=== PATIENT | female | born 1970 | race Caucasian/White ===

== ENCOUNTER 2018-07-23 09:00 | Day surgery (SDC) | payer MEDICAID, SELFPAY ==
[2018-07-23] VITALS (13 sets, daily range): BP systolic 91–141; BP diastolic 63–99; PULSE 66–98; RESP 16–18; TEMP 36.1–36.7; O2SAT 93–100; BMI 29.7
--- NOTE | 2018-07-23 10:45 | BON_PTH ---
PATIENT: RHONDA MEHTA LOC: [facility] U#:[id number] AGE/SX: 47/F ROOM: RE07/23/[address]: Dr. Elaine Sheth DPM : 1970 BED: DIS: 07/23/2018 SPEC #: [id number] RECD: 07/23/18 16:44 STATUS: ALIS REMaurice #: [id number] MANFRED: 07/23/18 10:[address]: Elaine Sheth DEPT: SURGICAL PATHOLOGY RECD BY: Konstantin Bush ENTERED: 07/24/18 07:25 SP TYPE: Bone OTHR DR: Dr. Gisell Paul, Tissues: Bone of ankle, NOS Procedures: Decalcification bone/plaque Surgery Specimen Level IV HEADER OPERATION: Arthroscopy ankle, synovectomy, subchondroplasty, exostectomy PRE-OP DIAGNOSIS: Pain left ankle and joints TISSUE SUBMITTED: Medial malleolus exostosis left ankle MICROSCOPIC DIAGNOSIS Left ankle medial malleolus, exostosis: Fragments of osseocartilaginous tissue with reactive change. See comment. ADRIANA:joslyn 07/29/18 COMMENT The findings are consistent with exostosis. Clinical correlation is suggested. MICROSCOPIC DESCRIPTION Slides are reviewed. GROSS DESCRIPTION Received in fixative is one container labeled with the patient's name and designated left ankle medial malleolus exostosis. The specimen consists of four variable sized pieces of berry bone that in aggregate measure 1 x 1 x 0.2 cm. The entire specimen is submitted in one cassette after decalcification. / SJ:joslyn 07/24/18 TC:5 CPT: 68070, 75047
--- NOTE | 2018-07-23 10:45 | RAD_ITS ---
HISTORY: CHONDROPLASTY EXAM/TECHNIQUE: XR Ankle 2 Views: COMPARISON: None. FINDINGS: # of images incl. paperwork: 5 4 fluoroscopic images of the left ankle with an introducer directed toward the ankle joint compatible with chondroplasty. RAD/Ankle 2 Views IMPRESSION: Fluoroscopic images of chondroplasty of the left ankle. No apparent complication. at 2132 Reported and signed by: Kemar Ratliff MD Electronically Signed: Kemar Ratliff, at 21:31 EST Tel , Service support ,
[2018-07-23] MEDS: Cefazolin 2 GM in 0.9% Normal Saline 100 ML IV (13:42)
--- NOTE | 2018-07-23 16:13 | RAD_ITS ---
STUDY: X-RAY - LEFT ANKLE REASON FOR EXAM: Female, 47 years old. Postop. Subchondral plasty. Medial malleolar exostectomy. TECHNIQUE: 3 view(s) of the ankle. COMPARISON: Intraoperative left ankle, July 23, 2017. FINDINGS: There is a semiradiopaque splint about the ankle which limits visualization. Normal visualized distal tibia and fibula. Normal medial and lateral malleoli. Normal tibiotalar articulation and ankle mortise. Normal visualized talus. There is a plantar spur along the underside of the calcaneus. The visualized subtalar, talonavicular, calcaneocuboid and tarsal articulations are normal. There is mild soft tissue swelling. RAD/Ankle min 3 Views IMPRESSION: No evidence of acute fracture or dislocation. There is associated soft tissue swelling. Electronically Signed: Sukh Oquendo DO at 17:54 EST Tel [phone], Service support ,
--- NOTE | 2018-07-23 16:13 | DCINST_ITS ---
Discharge Activity: May Not Drive, May not drive while taking narcotic pain medications., May Not Shower, Use Walker, Use Crutches Ice area for (Minutes): 20 - 20 minutes of each hour behind left knee while awake Weight Bearing Status: No weight bearing Keep extremity elevated above heart level: Operative Extremity Call your doctor if your incision/area has: Sudden Increased Bleeding Call your doctor if you observe: Fever of 101 or Higher, Shortness of breath, Dizziness, Chest pain, Increased palpitations (irregular heartbeat), Calf discomfort Cleanse incision/area with: Keep Dressing Clean & Dry Allergies/Adverse Reactions: Allergies bee venom protein (honey bee) Allergy (Verified 07/17/18 09:09) Anaphylaxis latex Allergy (Verified 07/17/18 09:09) Rash Pork/Porcine Containing Products Allergy (Verified 07/17/18 09:09) Food Allergy Medications to take at Discharge Topiramate [Topamax] 100 mg PO DAILY 10/18/13 Duloxetine Hcl [Cymbalta] 60 mg PO DAILY 12/25/13 Milnacipran HCl [Savella] 50 mg PO DAILY 07/17/18 Pseudoephedrine HCl [Sudafed 24-Hour] 240 mg PO DAILY 07/17/18 Oxycodone [Oxyir] 5 mg PO Q6H PRN PRN 7 Days #30 tab 07/23/18 The following prescriptions were given: Oxycodone [Oxyir] 5 mg PO Q6H PRN PRN 7 Days #30 tab PRN Reason: Pain Primary Care Physician: Gisell Paul DO [Primary Care Provider] - Test Results: Test results from this visit will be discussed in further detail at your follow- up appointment, if applicable. Please Follow Up With: Elaine Sheth DPM - Please follow up at your previously scheduled post operative appointment next week. Proposed Discharge Date: 07/23/18
--- NOTE | 2018-07-23 16:58 | PCM.IMDPSTOP ---
Immediate Post-Op Note Date of Procedure: 07/23/18 Primary Surgeon/Physician: Elaine Sheth DPM marble coper: Samuel Smith Pre-Operative Diagnosis: L talus OCD w/ cyst, L ankle synovitis, L medial malleolus exostosis Post-Operative Diagnosis: same Surgery/Procedure Performed:: L ankle arthrocopy w/ synovectomy converted to arthrotomy, L medial mallelous exostectomy, L talus OCD/cyst repair Description of Surgical Findings:: see dictation Estimated Blood Loss: minimal Specimen's removed: L medial malleolus exostosis Type of Anesthesia:: General/Supplemental - Admit VTE Documentation VTE Present on Admission: No VTE Mechan Device Prophylaxis: SCD's, Knee High ISABELL Hose VTE Pharm Prophylaxis ordered?: Yes
--- NOTE | 2018-07-23 17:06 | OP.PN_ITS ---
Immediate Post-Op Note Date of Procedure: 07/23/18 Primary Surgeon/Physician: Elaine Sheth DPM netbackup engineer: Samuel Smith Pre-Operative Diagnosis: L talus OCD w/ cyst, L ankle synovitis, L medial malleolus exostosis Post-Operative Diagnosis: same Surgery/Procedure Performed:: L ankle arthrocopy w/ synovectomy converted to arthrotomy, L medial mallelous exostectomy, L talus OCD/cyst repair Description of Surgical Findings:: see dictation Estimated Blood Loss: minimal Specimen's removed: L medial malleolus exostosis Type of Anesthesia:: General/Supplemental - Admit VTE Documentation VTE Present on Admission: No VTE Mechan Device Prophylaxis: SCD's, Knee High ISABELL Hose VTE Pharm Prophylaxis ordered?: Yes
[2018-07-23] MEDS: Ketorolac 30 MG/ML Syringe IV (17:58)
--- NOTE | 2018-07-25 21:46 | OP.PCM_ITS ---
Report of Operation Date of Procedure: 07/23/18 Pre-Operative Diagnosis: L talus OCD w/ cyst, L ankle synovitis, L medial malleolus exostosis Post-Operative Diagnosis: same Surgery/Procedure Performed:: L ankle arthrocopy w/ synovectomy converted to arthrotomy, L medial mallelous exostectomy, L talus OCD/cyst repair Description of Surgical Findings:: see dictation professor of food biochemistry: Samuel Smith Type of Anesthesia:: General/Supplemental Specimen's removed: L medial malleolus exostosis Estimated Blood Loss (mL): minimal Description of Procedure: Indications: Pt is a 47 yo F known to me who has failed conservative care for L ankle pain after sustaining two significant ankle sprains within the last year. As patient had a previous MRI in the fall and the pain has continued and worsened, we obtained an MRI prior to surgery for planning. Based on preoperative review of this patient?s left ankle MRI, the location of the bone marrow lesion, consistent with an insufficiency or stress fracture, in the talus was identified. Preoperative surgical planning allowed for determination of the optimal methods for accessing the lesion. All risks, complications, and alternatives were discussed with the patient, and the patient signed an informed consent. No guarantees were given. Procedure: On 07/23/2018, Kenisha Jones was visually and verbally identified in the preoperative holding area. The consent form was again reviewed with the patient, as were all risks, complications, and alternatives and the patient wished to proceed with the proposed surgery. The left ankle was marked as the correct operative extremity. The patient was brought to the operating room and placed on the operating room table in the normal supine position. After induction by anesthesia, a surgical time out was performed and all present were in agreement. a pneumatic thigh tourniquet was then placed. A thigh westbrook was placed with care taken to offload the CPN. At this time the left lower extremity was prepped and draped in the usual sterile fashion. after exsanguination with an esmarch the tourniquet was inflated to 300 mmHg. At this time attention was directed to the medial talus. Intraoperatively, image fluoroscopy combined with bone targeting instruments from [employer] were used to guide surgical instruments into the proximity of the subchondral talar fracture. The [employer] Accuport injection cannula was drilled in the subchondral bone. Standard repair methodology was used to treat the subchondral bone defect in the talus. Image fluoroscopy was utilized to confirm accurate insertion of the Accuport injection cannula into the subchondral fracture. After insertion, fracture stabilization was performed by injecting (3 cc) of [employer] Bone Substitute Accufill material into the talus. Image fluoroscopy was used to monitor the injection process and insure injection of the bone substitute into the subchondral bone so that the biomaterial flowed into the fracture site to stabilize the fracture and facilitate fracture/cyst repair. The ankle was then distracted using Arthrex ankle arthroscopy equipment. The incision was bluntly carried deep through the subcutaneous tissues with careful attention paid to all bleeders, which were clamped and tied or bovied as necessary. All vital neurovascular structures were retracted. Attention was then turned to the medial ankle. An 18-gauge spinal needle was inserted at the level of the medial arthroscopy gutter just medial to the tibialis anterior tendon. A #15 blade was used to incise at this level after the ankle joint was inflated with 15 20 mL of normal sterile saline. The blunt trocar was then used to insert through the ankle joint capsule medially. The arthroscopic camera was inserted through this cannula. The lateral portal site was identified lateral to the intermediate dorsal cutaneous nerve. A #15 blade was used to make incision and the ankle joint capsule was perforated with the mosquito hemostats. The shaver was inserted through the lateral portal. Inspection of the ankle revealed no penetration of the Accufill into the ankle joint. The joint was significantly narrowed, the cartilage appeared thinned and pitted extensively and throughout on both the tibial and talar surfaces. No floating OCD was noted, anterolateral and medial soft tissue impingement was noted. The ankle joint was further distracted as it was significantly narrowed impeding inspection. There is mild inflammatory tissue in the posterior medial aspect of the synovial capsule. The syndesmosis showed a inflamed meniscoid lesion. Debridement began in the anterolateral gutter with the arthroscopic shaver in which we debrided the synovial hyperplasia The shaver was then removed from the lateral portal and the camera was inserted in the lateral portal. This allowed us to visualize the medial gutter which showed moderate synovial hyperplasia with injected synovium. Given the limited motion of both the camera and the shaver due to the joint space, I felt determined that a open ankle arthrotomy would be needed to full inspect the ankle joint. The arthroscopic instruments were removed. A curvilinear incision was made using a #15 blade along the medial malleolus incorporating the portal incision. The incision was bluntly carried deep through the subcutaneous tissues with careful attention paid to all bleeders, which were clamped and tied or bovied as necessary. All vital neurovascular structures were retracted. The ankle joint capsule was incised and the ankle joint was inspected. the medial gutter was noted to be significantly narrowed, with no floating ocd noted. Inflamed soft tissue was removed with ronguers. I did not microfracture the talus. I then extended my incision proximally and through direct palpation located the prominent kimberly exotosis on the medial malleolus. This was exposed and using an osteotome and mallet it was resected. The kimberly exotosis was sent to the pathology. A rasp was used to smooth the edges and the bone and ankle joint were flushed with copious amounts of the normal sterile saline. Closure was then initiated. The ankle capsule and deep tissues were closed with 2.0vicryl and the subcutaneous tissues were closed with 3.0 vicryl. All skin incision, including the lateral portal were closed with 3.0 prolene. 1% lidocaine plain, 30 cc, was injected as part of both an ankle block and intra-articularly. Adaptic and dry. sterile dressing were applied, a multi layercompressive dressing was then applied to aid in edema and pain reduction and well as increase stability. A well padded posterior splint was the applied. Total tourniquet time was 92 minutes with immediate capillary refill noted to all digits upon deflation. Intra operative fluoroscopy was utilized throughout the case to aid in visualization and confirmation of fracture fixations. Interpretation of the images was vital to my decision making process. The patient tolerated the procedure and anesthesia well. The patient was then transported to the postanesthesia care unit by a member of the anesthesia team and myself with all vital signs stable and neurovascular status of the left lower extremity equal to pre-operative levels. At the end of the case all sponge, needle and instrument counts were found to be correct. Grafts/Implants Used: [employer] Accufill - Complications none - Admit VTE Documentation VTE Present on Admission: No VTE Mechan Device Prophylaxis: SCD's, Knee High ISABELL Hose VTE Pharm Prophylaxis ordered?: Yes
== END 2018-07-23 19:29 | disposition home or self-care (01) ==
LOC: SDC 09:01 → AC 09:03
PROVIDERS: Referring Provider Podiatrist Foot & Ankle Surgery; Visit Provider Podiatrist Foot & Ankle Surgery
PROC: (CPT 28100; principal; 2018-07-23 10:30)
DX: M85.672 Other cyst of bone, left ankle and foot (principal); M93.272 Osteochondritis dissecans, left ankle and joints of left foot; M65.872 Other synovitis and tenosynovitis, left ankle and foot; M25.572 Pain in left ankle and joints of left foot; R60.0 Localized edema; I87.2 Venous insufficiency (chronic) (peripheral); I73.9 Peripheral vascular disease, unspecified; M89.362 Hypertrophy of bone, left tibia; M79.7 Fibromyalgia; F17.210 Nicotine dependence, cigarettes, uncomplicated
CPT/HCPCS: 28100; 29895; 64450; 73600; 73610; 76000; 88305; 88311; C1713; J7120; J2405

== ENCOUNTER 2018-09-26 17:45 | Emergency (ER) | payer MEDICAID, SELFPAY ==
[2018-07-23 09:21] VITALS: BMI 29.7
[2018-09-26 17:45] VITALS: BP 141/99; PULSE 86; RESP 16; TEMP 36.2; O2SAT 99; BMI 30.7
--- NOTE | 2018-09-26 17:57 | ED.VISSUMM ---
- ER Visit Summary Date of Service: 09/26/18 Chief Complaint: Left leg pain and swelling History of Present Illness: The patient is a 47 F who has pain and swelling of her left leg. On July 23 she had a left ankle reconstruction surgery by Dr. Sheth. She was in a cast that was taken off 3 weeks ago. She is now in a walking boot and is weightbearing as tolerated. For the past 4 days she has pain and swelling of the left leg. She states it has been a little bit red. She was on antibiotics for ruptured eardrums 2 weeks ago. She denies any fevers. Physical Examination: Vital signs reviewed. Left leg exam reveals some swelling from the foot up to the knee on the left side. There is some erythema of the foot and ankle. It is diffusely tender around the foot and ankle area. She does have painful range of motion of the ankle. Neurologic exam normal. Test Results: Duplex ultrasound reveals a small DVT just below the left popliteal area. Emergency Department Course and Treatment: The patient will be given naproxen for pain. I will start her on Eliquis she will need to follow-up with her primary care physician for further testing Treatment Plan: [] Disposition: Discharge Impression: Left leg DVT This note was generated with [employer] dictation software. It may contain incorrect words, spelling, and punctuation that were not noted in review of the chart prior to signing ED Disposition - Plan for ED Patient: Referrals: Gisell Paul DO [Primary Care Provider] -
--- NOTE | 2018-09-26 17:59 | US_ITS ---
STUDY: VENOUS DOPPLER ULTRASOUND - BILATERAL LOWER EXTREMITIES REASON FOR EXAM: Female, 47 years old. TECHNIQUE: Ultrasound evaluation of the deep vein system to include laureano-scale imaging and compression was performed. Laureano-scale imaging and Doppler sonographic evaluation, including duplex spectral analysis and qualitative color flow sonography, was performed. COMPARISON: None. FINDINGS: RIGHT LEG Common Femoral Vein: Normal compression, spontaneity and augmentation. Normal color Doppler. Common Femoral Vein/Greater Saphenous Junction: Normal compression, spontaneity and augmentation. Normal color Doppler. Deep Femoral Vein: Normal compression, spontaneity and augmentation. Normal color Doppler. Femoral Proximal: Normal compression, spontaneity and augmentation. Normal color Doppler. Femoral Middle: Normal compression, spontaneity and augmentation. Normal color Doppler. Femoral Distal: Normal compression, spontaneity and augmentation. Normal color Doppler. Popliteal Vein: Normal compression, spontaneity and augmentation. Normal color Doppler. Posterior Tibial Vein: Normal compression, spontaneity and augmentation. Normal color Doppler. Peroneal Vein: Normal compression, spontaneity and augmentation. Normal color Doppler. LEFT LEG Common Femoral Vein: Normal compression, spontaneity and augmentation. Normal color Doppler. Common Femoral Vein/Greater Saphenous Junction: Normal compression, spontaneity and augmentation. Normal color Doppler. Deep Femoral Vein: Normal compression, spontaneity and augmentation. Normal color Doppler. Femoral Proximal: Normal compression, spontaneity and augmentation. Normal color Doppler. Femoral Middle: Normal compression, spontaneity and augmentation. Normal color Doppler. Femoral Distal: Normal compression, spontaneity and augmentation. Normal color Doppler. Popliteal Vein: Normal compression, spontaneity and augmentation. Normal color Doppler. Posterior Tibial Vein: Abnormal compression, spontaneity and augmentation. Abnormal color Doppler. Peroneal Vein: Normal compression, spontaneity and augmentation. Normal color Doppler. US/Venous Duplex Imag/Cristhian Extrem IMPRESSION: Study is positive for DVT in the posterior tibial vein of the left lower extremity No demonstrated DVT in the right lower extremity Electronically Signed: Lei Kearney MD at 19:16 EDT , Service support ,
[2018-09-26] MEDS: Naproxen 500 MG Tablet PO (19:07)
--- NOTE | 2018-09-26 19:10 | ED.DEP ---
ED Disposition - Plan for ED Patient: Disposition: Home or Assisted Living Instructions: ED DVT Prescriptions: Apixaban [Eliquis] 5 mg PO BID #74 tab Referrals: Gisell Paul DO [Primary Care Provider] -
[2018-09-26 19:24] VITALS: BP 134/96; PULSE 87; RESP 16; O2SAT 99
[2018-09-26] MEDS: APIXABAN 5 MG TABLET 10 MG PO (19:28)
== END 2018-09-26 19:39 | disposition home or self-care (01) ==
PROVIDERS: Emergency Provider Emergency Medicine
DX: I82.432 Acute embolism and thrombosis of left popliteal vein (principal); Z72.0 Tobacco use
CPT/HCPCS: 93970; 99283

== ENCOUNTER 2019-01-04 09:13 | Emergency (ER) | payer MEDICAID, SELFPAY ==
[2019-01-04 09:14] VITALS: BP 135/94; PULSE 111; RESP 20; TEMP 37; O2SAT 99; BMI 29.0
[2019-01-04 09:19] VITALS: TEMP 37
--- NOTE | 2019-01-04 09:32 | VDLE_ITS ---
Reason For Study: Swelling Procedure LEFT Exam performed portable in ED. GSV is normal. A preliminary report was called and/or faxed CFV is compressible, spontaneous, phasic, to ED. competent, and demonstrates normal augmentation. FV is compressible, spontaneous, phasic, competent and demonstrates normal augmentation. POP V is compressible, spontaneous, phasic, competent and demonstrates normal augmentation. T/P Trunk is compressible. PTV is compressible. LT PerV is compressible. Interpretation Summary There is no evidence of left lower extremity deep vein thrombosis. Left greater saphenous vein appears patent and compressible segmentally. Ordering Physician: Susie Chow Referring Physician: Gisell Paul Performed By: Diane Rogers RVT
--- NOTE | 2019-01-04 09:34 | ED.VIS.GEN ---
History of Present Illness Chief Complaint: Other, Pain/Inj Informant: Patient Onset: Days Narrative: Presents to the ED with left foot and ankle pain for the last 2 to 3 days. She reports associated swelling and feels as though the swelling is getting worse. She states I think I have a another blood clot. She states her last DVT was in September of this year. She took Eliquis for several months and her PCP discontinued this. She states this was provoked after having an orthopedic surgery on her left lower extremity after injury. She did fall in October of this year and broke her ankle. She currently denies any chest pain or shortness of breath. She has been taking ibuprofen and Tylenol for the pain. She denies any recent injury or surgical procedures. She states the pain feels like a burning sensation and localizes it more to the dorsal aspect of her left foot. Past Medical History - Allergies and Home Meds Allergies/Adverse Reactions: Allergies bee venom protein (honey bee) Allergy (Verified 01/04/19 09:17) Anaphylaxis latex Allergy (Verified 01/04/19 09:17) Rash Pork/Porcine Containing Products Allergy (Verified 01/04/19 09:17) Food Allergy Primary Care Physician: Gisell Paul DO [Primary Care Provider] - Smoking Status: Current every day smoker Review of Systems General: Denies: Chills, Fever, Sweats Eyes: Denies: Visual changes - bilaterally, Diplopia ENT: Denies: Rhinorrhea, Sore throat Cardiovascular: Denies: Chest pain, Palpitations Respiratory: Denies: Dyspnea, Cough, Dyspnea on exertion Gastrointestinal: Denies: Abdominal pain, Nausea, Vomiting, Diarrhea, Melena, Hematochezia Genitourinary: Denies: Dysuria, Hematuria, Frequency Musculoskeletal: Reports: - - Left foot and ankle pain with swelling. Denies: Back pain, Extremity Pain Skin: Denies: Rash, Wounds Neurological: Denies: Headache, Weakness, Numbness Physical Exam Vital Signs/Narrative: Vital Signs Temp Pulse Resp BP Pulse Ox 01/04/19 09:19 98.6 F 01/04/19 09:14 98.6 F 111 H 20 H 135/94 H 99 General: Well nourished, Well developed, No Acute Distress Head: Normocephalic, Atraumatic Eyes: Perrl, EOMI ENT: Moist mucous membranes, No rhinorrhea Neck: Supple, Nontender Cardiovascular: Regular rate, Regular rhythm, No murmurs Respiratory: No distress, CTA bilaterally, Chest nontender Abdomen: Soft, Nontender, Nondistended, Normal bowel sounds Back: Nontender, Normal Inspection Extremities: Tenderness - Enters to palpation over anterior and posterior aspect of left ankle. No erythema or ecchymosis. No warmth to palpation. No palpable cords., Edema - 1+ pitting edema to left lower extremity., - Skin: Normal color, No rash Neurological: Alert, Oriented x3, Cranial nerves II-XII grossly intact, Normal Strength, Normal Sensation Psychological: Normal affect, Normal Mood Diagnostic/Tx/Re-eval Venous duplex of left lower extremity is negative for acute DVT. - Medical Decision Making Patient presents to the ED with increased left ankle and foot pain and swelling. She is concerned for DVT. She has a history of DVT with her last being in September of this year. She was recently taken off of Eliquis. She denies any chest pain or shortness of breath. She is given IM Toradol here for analgesia. Ultrasound is negative for acute DVT. At this time, I think it is safe for the patient be discharged home. She was placed in an North wrap. She was instructed to ice and elevate her left lower extremity. I did provide her with prescription for Naprosyn for analgesia and she will supplement this with Tylenol. She was educated on signs/symptoms to return to the ED. She is provided discharge instructions. She is agreeable to plan. Disposition: Home stable Impression: Left lower extremity pain and swelling ED Disposition - Plan for ED Patient: Disposition: Home or Assisted Living Diagnosis: Leg swelling, Leg pain Instructions: ED Peripheral Edema, Unilateral Prescriptions: Naproxen [Naprosyn] 500 mg PO BID PRN #20 tab Prescription Printed Referrals: Gisell Paul DO [Primary Care Provider] -
[2019-01-04] MEDS: Ketorolac 30 MG/ML Syringe IM (09:40)
[2019-01-04 11:50] VITALS: RESP 16
== END 2019-01-04 11:52 | disposition home or self-care (01) ==
PROVIDERS: Emergency Provider Physician Assistant
DX: M79.605 Pain in left leg (principal); M79.89 Other specified soft tissue disorders; Z86.718 Personal history of other venous thrombosis and embolism; F17.200 Nicotine dependence, unspecified, uncomplicated; Z91.040 Latex allergy status
CPT/HCPCS: 93971; 99282

== ENCOUNTER → 2022-08-22 | Outpatient (CLI) | payer MEDICAID, SELFPAY ==
--- NOTE | 2022-08-22 10:52 | RAD_ITS ---
STUDY: X-RAY - LUMBAR SPINE REASON FOR EXAM: Female, 51 years old. Neck pain. History of multiple injuries. TECHNIQUE: 3 view(s) of the lumbar spine were obtained. COMPARISON: None FINDINGS: Normal lumbar lordosis. There is a mild levoscoliosis of the thoracolumbar spine. There is a normal alignment of the vertebrae. There is multilevel endplate spondylosis of the lumbar vertebrae. There is multi-level degenerative disc disease with multi-level disc space narrowing. There is no evidence of acute fracture or loss of vertebral axial height. The soft tissue structures are unremarkable. RAD/Lumbar Spine 2 or 3 Views IMPRESSION: Degenerative changes of the spine, as detailed above. Electronically Signed: Sukh Oquendo DO at 17:51 EST ,
--- NOTE | 2022-08-22 10:52 | RAD_ITS ---
STUDY: X-RAY - THORACIC SPINE REASON FOR EXAM: Female, 51 years old. Back pain. Multiple injuries. TECHNIQUE: 2 view(s) of the thoracic spine were obtained. COMPARISON: Lumbar spine, August 22, 2022. FINDINGS: Normal kyphosis of the thoracic spine. There is a mild dextroscoliosis with the convexity at T8. There is demineralization of the thoracic spine with endplate spondylosis. There is multilevel disc space narrowing of the thoracic spine. There is no evidence of acute fracture or loss of vertebral axial height. The soft tissue structures are unremarkable. RAD/Thoracic Spine 2 Views IMPRESSION: Degenerative changes and scoliosis of the thoracic spine. Electronically Signed: Sukh Oquendo DO at 17:52 EST ,
== END | disposition home or self-care (01) ==
LOC: RAD 10:41
PROVIDERS: PCP Preventive Medicine Occupational Medicine; Visit Provider Anesthesiology Pain Medicine
DX: M51.34 Other intervertebral disc degeneration, thoracic region (principal); M51.36 Other intervertebral disc degeneration, lumbar region
CPT/HCPCS: 72070; 72100